=== PATIENT | female | born 1955 | race Caucasian/White ===

== ENCOUNTER 2017-01-25 21:50 | Emergency (ER) | payer SELFPAY ==
[2017-01-25] MEDS ORDERED: HYDROcodone/Acetaminophen 10/325 mg Tablet ONE (22:03)
--- NOTE | 2017-01-25 23:24 | RAD ---
TWO VIEWS RIGHT HUMERUS: History: Trauma, unable to move right shoulder. FINDINGS: AP and lateral views obtained. There is a comminuted proximal humeral head fracture. There is some impaction of the distal fracture fragments. IMPRESSION: Comminuted right humeral head fracture. POS: [facility]
--- NOTE | 2017-01-25 23:25 | RAD ---
THREE VIEWS RIGHT SHOULDER: History: Unable to rotate arm. FINDINGS: AP internally, externally, and scapular Y views right shoulder obtained. There is a comminuted fracture involving the right humeral head. The greater tuberosity is displaced . No other right shoulder fracture seen. IMPRESSION: Comminuted right humeral head fracture. POS: [facility]
== END 2017-01-25 23:09 | disposition home or self-care (01) ==
LOC: BURERS 21:50
DX: S42.251A Displaced fracture of greater tuberosity of right humerus, initial encounter for closed fracture (principal); I10 Essential (primary) hypertension; F41.9 Anxiety disorder, unspecified; F17.210 Nicotine dependence, cigarettes, uncomplicated; W18.30XA Fall on same level, unspecified, initial encounter

== ENCOUNTER 2017-01-27 08:41 | Outpatient (CLI) | payer OTHER, SELFPAY ==
--- NOTE | 2017-01-27 21:03 | CT ---
CT OF THE RIGHT SHOULDER: Date: 01-27-17 Technique: Axial slices of the shoulder were obtained then coronal and sagittal reconstructions were done. FINDINGS: There is a fracture through the greater tubercle with displacement of the tubercle somewhat. It is p artially fragmented. Additionally, the animal control licensing worker view suggests that there is also a fracture through the region of the surgical neck of the humerous as it attaches to the humeral head. The distance be tween the humeral head and the acromion is narrowed suggesting there may be some chronic rotator cuf f thinning. As best as I can tell, the long head of the biceps muscle is still in the bicipital groo ve, but it is difficult to be certain on this study. There is considerable soft tissue swelling anterior to the shoulder joint superficial to the anterio r section of the deltoid muscle. There is no dislocation of the humeral head. I see no scapular frac tures. The AC joint does not seem wide. IMPRESSION: 1. Comminuted fracture of the greater tubercle with displacement. 2. Sagittal and coronal views suggest that there is also an impacted surgical neck fracture. POS: [facility]
== END 2017-01-27 08:42 | disposition home or self-care (01) ==
LOC: BURCT 08:41
PROVIDERS: ATTEND Orthopaedic Surgery
DX: M25.511 Pain in right shoulder (principal); S42.251A Displaced fracture of greater tuberosity of right humerus, initial encounter for closed fracture

== ENCOUNTER 2017-05-21 15:27 | Emergency (ER) | payer SELFPAY ==
[2017-05-21 16:29] LABS: Hemoglobin A1c 4.9 % (4.0-6.0)
[2017-05-21 16:40] LABS: ALT (SGPT) 18 U/L (8-55); AST (SGOT) 21 U/L (5-34); Albumin 3.9 g/dL (3.5-5.0); Alkaline Phosphatase 127 U/L (40-150); Anion Gap 11 mmol/L (10-20); BUN (Urea Nitrogen) 14 mg/dL (9.8-20.1); Bilirubin, Total 0.4 mg/dL (0.2-1.2); Calc. Creatinine Clearance 0 mL/min (70-130); Carbon Dioxide 24 mmol/L (22-29); Chloride 109 mmol/L (98-107); Estimated GFR-MDRD 67; Globulin 2.8 g/dL (2.4-3.5); Glucose 94 mg/dL (70-105); Potassium 4.5 mmol/L (3.5-5.1); Protein, Total 6.7 g/dL (6.0-8.3); Sodium 139 mmol/L (136-145)
[2017-05-21 16:42] LABS: Hemoglobin 16.3 g/dL (12.0-16.0); Mean Corpuscular Hemoglobin 32.4 pg (27.0-31.0); Mean Corpuscular Volume 95.1 fl (81.0-99.0); Mean Platelet Volume 9.1 fL (7.4-10.4); Platelet Count 50 thou/uL (130-400); RBC Distribution Width 12.4 % (11.5-14.5); Red Blood Cell (RBC) Count 5.04 mill/uL (4.20-5.40)
[2017-05-21 16:54] LABS: Platelet Clumps MODERATE
[2017-05-21 16:57] LABS: MDiff Complete? YES
[2017-05-21 16:59] LABS: Manual Diff?? YES
[2017-05-21 17:01] LABS: Eosinophils 4 % (0-10); Lymphocytes 49 % (21-51); Monocytes 7 % (0-10); Neutrophil 38 % (42-75)
[2017-05-21 17:07] LABS: Free T4 (Free Thyroxine) 1.08 ng/dL (0.70-1.48); Thyroid Stimulating Hormone 1.1835 uIU/mL (0.35-4.94)
== END 2017-05-21 17:39 | disposition home or self-care (01) ==
LOC: BURERS 15:27
DX: E16.2 Hypoglycemia, unspecified (principal); I10 Essential (primary) hypertension; M48.00 Spinal stenosis, site unspecified; F41.9 Anxiety disorder, unspecified; F17.210 Nicotine dependence, cigarettes, uncomplicated; Z79.899 Other long term (current) drug therapy
CPT/HCPCS: 36416; 80053; 83036; 83880; 84439; 84443; 84681; 85025; 93005; 36415-59